=== PATIENT | female | born 1965 | race Two or more races ===

== ENCOUNTER 2017-06-05 08:53 | Outpatient (CLI) | payer OTHER | END 2017-06-05 09:09 | disposition home or self-care (01) | LOC: SONOGRAMA 08:53 | DX: D25.1 Intramural leiomyoma of uterus (principal); N84.1 Polyp of cervix uteri ==

== ENCOUNTER 2017-06-29 11:12 | Outpatient (CLI) | payer OTHER | END 2017-06-29 11:25 | disposition home or self-care (01) | LOC: LAB 11:12 | DX: D64.89 Other specified anemias (principal); N39.0 Urinary tract infection, site not specified ==

== ENCOUNTER 2017-06-29 11:26 | Outpatient (CLI) | payer OTHER | END 2017-06-29 11:50 | disposition home or self-care (01) | LOC: RAD 11:26 | DX: I10 Essential (primary) hypertension (principal); N60.11 Diffuse cystic mastopathy of right breast; N60.12 Diffuse cystic mastopathy of left breast; D25.1 Intramural leiomyoma of uterus ==

== ENCOUNTER 2017-07-09 06:05 | Day surgery (SDC) | payer OTHER ==
[2017-07-09] MEDS ORDERED: NAPROXEN SODIU550 M1 PO (10:27)
== END 2017-07-09 13:25 | disposition home or self-care (01) ==
LOC: CIR.AMB 06:05
DX: N84.0 Polyp of corpus uteri (principal)

== ENCOUNTER 2018-05-01 10:28 | Outpatient (CLI) | payer OTHER ==
[~2018-05-01 10:28] MED LIST: NAPROXEN SODIU550 M1 PO
== END 2018-05-01 10:31 | disposition home or self-care (01) ==
LOC: MAMO-SONO 10:28
DX: N64.1 Fat necrosis of breast (principal); R10.2 Pelvic and perineal pain; Z12.31 Encounter for screening mammogram for malignant neoplasm of breast

== ENCOUNTER 2019-05-02 10:20 | Outpatient (CLI) | payer OTHER | END 2019-05-02 11:16 | disposition home or self-care (01) | LOC: MAMO-SONO 10:20 | DX: Z12.31 Encounter for screening mammogram for malignant neoplasm of breast (principal); Z87.898 Personal history of other specified conditions; N64.1 Fat necrosis of breast ==

== ENCOUNTER 2020-05-06 14:12 | Outpatient (CLI) | payer OTHER | END 2020-05-06 14:25 | disposition home or self-care (01) | LOC: MAMO-SONO 14:12 | DX: R92.2 Inconclusive mammogram (principal); R10.2 Pelvic and perineal pain; N64.4 Mastodynia; N64.59 Other signs and symptoms in breast ==

== ENCOUNTER 2021-05-10 08:17 | Outpatient (CLI) | payer OTHER | END 2021-05-10 08:48 | disposition home or self-care (01) | LOC: MAMO-SONO 08:17 | DX: N64.89 Other specified disorders of breast (principal); R10.2 Pelvic and perineal pain ==

== ENCOUNTER 2022-05-12 07:46 | Outpatient (CLI) | payer OTHER | END 2022-05-12 08:00 | disposition home or self-care (01) | LOC: MAMO-SONO 07:46 | PROVIDERS: ATTEND Family Medicine | DX: R10.2 Pelvic and perineal pain (principal); N64.9 Disorder of breast, unspecified ==

== ENCOUNTER 2023-05-14 07:58 | Outpatient (CLI) | payer OTHER | END 2023-05-14 08:33 | disposition home or self-care (01) | LOC: MAMO-SONO 07:58 | PROVIDERS: ATTEND Family Medicine | DX: R10.2 Pelvic and perineal pain (principal); N64.9 Disorder of breast, unspecified; Z12.31 Encounter for screening mammogram for malignant neoplasm of breast ==

== ENCOUNTER 2024-05-16 07:55 | Outpatient (CLI) | payer OTHER | END 2024-05-16 08:11 | disposition home or self-care (01) | LOC: MAMO-SONO 07:55 | PROVIDERS: ATTEND Family Medicine | DX: R10.2 Pelvic and perineal pain (principal); N64.4 Mastodynia ==

== ENCOUNTER 2025-05-18 07:20 | Outpatient (CLI) | payer OTHER | END 2025-05-18 07:33 | disposition home or self-care (01) | LOC: MAMO-SONO 07:20 | PROVIDERS: ATTEND Family Medicine | DX: N64.4 Mastodynia (principal); Z12.31 Encounter for screening mammogram for malignant neoplasm of breast; D25.9 Leiomyoma of uterus, unspecified ==